=== PATIENT | male | born 1980 | race Two or more races ===

== ENCOUNTER 2016-09-19 00:33 | Emergency (ER) | payer OTHER ==
[~2016-09-19] VITALS: Ht 172.7 cm; Wt 83.0 kg
[2016-09-19] MEDS ORDERED: HYDROmorphone 1mg/ml Carpuject IVP ONE (00:45)
[2016-09-19] MEDS ORDERED: Ketorolac 30mg Inj IV ONE (00:45)
--- NOTE | 2016-09-19 00:45 | Emergency Room Report ---
History of Present Illness General Chief Complaint: Abdominal Pain Source: Patient Present Illness HPI Is a 36-year-old male with no past medical history. He presents with chief complaint of acute onset of right flank/lower quadrant pain about an hour ago. Pain is severe. 10 out of 10. Pain radiates to the groin. Has urge to urinate but can't. Has nausea but no vomiting. No diarrhea. Never had this problem before. Allergies: Coded Allergies: No Known Allergies (Unverified , 09/19/16) Patient History Past Medical History: see triage record, old chart reviewed Past Surgical History: none Pertinent Family History: none Social History: Denies: smoking Immunizations: other Reviewed Nursing Documentation: PMH: Agreed, PSxH: Agreed Nursing Documentation-PMH Past Medical History: No Stated History Review of Systems Eye: Denies: blurred vision, eye pain ENT: Denies: ear pain, nose congestion, throat swelling Respiratory: Denies: cough, shortness of breath Cardiovascular: Denies: chest pain, palpitations Gastrointestinal: Reports: abdominal pain, nausea, Denies: diarrhea, vomiting Musculoskeletal: Denies: back pain, joint pain Skin: Denies: rash Neurological: Denies: headache, numbness Endocrine: Denies: increased thirst, increased urine Hematologic/Lymphatic: Denies: easy bruising All Other Systems: negative except mentioned in HPI Physical Exam Vital Signs Date Time Temp Pulse Resp B/P Pulse Ox O2 Delivery O2 Flow Rate FiO2 09/19/16 00:36 97.5 72 18 153/82 98 Room Air vitals with hypertension Sp02 EP Interpretation: reviewed, normal General Appearance: well appearing, alert, moderate distress - From pain Head: normocephalic, atraumatic Eyes: bilateral eye EOMI, bilateral eye PERRL ENT: hearing grossly normal, normal pharynx Neck: full range of motion, supple, no meningismus Respiratory: chest non-tender, lungs clear, normal breath sounds Cardiovascular #1: regular rate, rhythm, no murmur Gastrointestinal: normal bowel sounds, non tender, no mass, no organomegaly, no bruit, non-distended Musculoskeletal: back normal, gait/station normal, normal range of motion Psychiatric: mood/affect normal Skin: warm/dry Medical Decision Making Diagnostic Impression: Primary Impression: Ureteral calculus, right ER Course Patient present with right flank pain and hematuria. This is consistent with early ureteral stone. He is pain-free now. No evidence of obstruction. Notice of infection. No abnormal kidney function. We'll discharge home. Lab Results Impression labs unremarkable Other X-Ray Diagnostic Results Other X-Ray Diagnostic Results : X-Ray ordered: Abdominal x-rays # of Views/Limited Vs Complete: 1 View Indication: Pain EP Interpretation: Yes Interpretation: no dislocation, no soft tissue swelling, no fractures, nonspecific bowel gas Impression: No acute disease Interpreting ER Provider: Electronically signed by Timoteo Nicole MD Last Vital Signs Date Time Temp Pulse Resp B/P Pulse Ox O2 Delivery O2 Flow Rate FiO2 09/19/16 00:36 97.5 72 18 153/82 98 Room Air Status: improved Disposition: HOME, SELF-CARE Condition: Stable Scripts Tamsulosin Hcl (TAMSULOSIN HCL*) 0.4 Mg Cap.er.24h 0.4 MG ORAL BEDTIME, #10 CAP Prov: TIMOTEO NICOLE M.D. 09/19/16 Hydrocodone/Acetaminophen 5-325* (HYDROCODONE/ACETAMINOPHEN 5-325*) 1 Each Tablet 1 TAB ORAL Q6H Y for For Pain, #20 TAB 0 Refills Prov: TIMOTEO NICOLE M.D. 09/19/16 Additional Instructions: Followup with your Dr. in 2-3 days. Return for fever, chills, vomiting, increasing pain or unable to urinate. If not better, you may be a CT scan and urology referral. TIMOTEO NICOLE M.D. Sep 19, 2016 00:45
[2016-09-19 01:00] VITALS: BP 137/67
[2016-09-19 01:04] LABS: BASOPHILS % (AUTO) 0.7 % (0.0-2.0); EOSINOPHILS % (AUTO) 1.4 % (0.0-3.0); LYMPHOCYTES % (AUTO) 35.2 % (20.0-45.0); MEAN CORPUSCULAR HEMOGLOBIN 26.7 PG (27.0-31.0); MEAN CORPUSCULAR HGB CONC 31.7 G/DL (32.0-36.0); MEAN CORPUSCULAR VOLUME 84 FL (80-99); MEAN PLATELET VOLUME 6.9 FL (6.5-10.1); MONOCYTES % (AUTO) 7.2 % (1.0-10.0); NEUTROPHILS % (AUTO) 55.5 % (45.0-75.0); PLATELET COUNT 334 K/UL (150-450); RED BLOOD COUNT 5.95 M/UL (4.70-6.10); RED CELL DISTRIBUTION WIDTH 11.1 % (11.6-14.8); WHITE BLOOD COUNT 11.6 K/UL (4.8-10.8)
[2016-09-19 01:23] LABS: ALANINE AMINOTRANSFERASE 36 U/L (3-41); ALBUMIN/GLOBULIN RATIO 1.3 (1.0-2.7); ANION GAP 17 (5-15); ASPARTATE AMINO TRANSFERASE 31 U/L (5-40); CALCIUM 9.7 mg/dL (8.6-10.2); CARBON DIOXIDE 23 mEQ/L (20-30); CHLORIDE 100 mEQ/L (98-107); CREATININE 1.2 mg/dL (0.7-1.2); GLOMERULAR FILTRATION RATE > 60 mL/min (>60); HEMOLYSIS 12; LIPASE 28 U/L (< 60); POTASSIUM 3.3 mEQ/L (3.4-4.9); SODIUM 140 mEQ/L (135-145); TOTAL PROTEIN 8.3 g/dL (6.6-8.7)
[2016-09-19 02:25] LABS: KETONES,URINE 1+ (NEGATIVE); LEUKOCYTE ESTERASE ,URINE NEGATIVE (NEGATIVE); NITRITE,URINE NEGATIVE (NEGATIVE); PH,URINE 5 (4.5-8.0); PROTEIN,URINE NEGATIVE (NEGATIVE); UROBILINOGEN,URINE NORMAL MG/DL (0.0-1.0)
[2016-09-19 02:26] LABS: APPEARANCE,URINE CLEAR
[2016-09-19 02:30] VITALS: BP 128/70
[2016-09-19 02:31] LABS: MUCUS,URINE FEW /LPF (NONE/OCC); RBC,URINE 20-30 /HPF (0 - 0); WBC,URINE 0-2 /HPF (0 - 0)
[2016-09-19] MEDS ORDERED: TAMSULOSIN HCL0.4 MG ORAL (02:40)
[2016-09-19] MEDS ORDERED: HYDROCODON-ACE1 EA15 ORAL (02:40)
[2016-09-19 03:02] VITALS: BP 128/70
--- NOTE | 2016-09-19 08:40 | Diagnostic Imaging Report ---
Indication: ABD PAIN Technique: XRAY ABDOMEN 1VIEW/KUB Comparison: None. Findings: There is some small bowel gas and left-sided the abdomen. Loop is not dilated. The remaining bowel gas pattern is unremarkable. The bones are normal. No free fluid. No gross free air. Impression: Nonspecific small bowel gas in the left side of the abdomen. This does not appear obstructive. Otherwise negative.
== END 2016-09-19 03:02 | disposition home or self-care (01) ==
LOC: EMR 00:40
DX: N20.1 Calculus of ureter (principal)
CPT/HCPCS: 36415; 74000; 80053; 81003; 83690; 85025; 96360; 96361; 96374; 96375; 99284; J1170; J1885; J2405